=== PATIENT | female | born 1975 | race Caucasian/White ===

== ENCOUNTER → 2017-04-21 16:16 | Outpatient (CLI) | payer OTHER, SELFPAY ==
--- NOTE | 2017-04-21 16:25 | MRI_ITS ---
STUDY: MRI LUMBAR SPINE WITHOUT CONTRAST REASON FOR EXAM: Female, 41 years old. Low back pain radiating down right leg TECHNIQUE: Standardized fat and water weighted pulse sequences were obtained in the sagittal and axial planes. COMPARISON: October 19, 2014 FINDINGS: T12-L1: Normal endplates. Normal disc height, hydration and morphology. Normal bilateral facet joints. Normal central canal and bilateral lateral recesses. Normal bilateral intervertebral neural foramina. Normal lumbar lordosis. There is no substantial scoliosis. Normal conus medullaris that terminates at T12-L1 L1-2: Normal endplates. Normal disc height, hydration and morphology. Normal bilateral facet joints. Normal central canal and bilateral lateral recesses. Normal bilateral intervertebral neural foramina. L2-3: Normal endplates. Normal disc height, hydration and morphology. Normal bilateral facet joints. Normal central canal and bilateral lateral recesses. Normal bilateral intervertebral neural foramina. L3-4: Grade 1 spondylolisthesis and spondylolysis. Degenerative endplate changes with narrowing the disc space and desiccation of the disc. Moderate bulging disc osteophyte complex. Bilateral facet arthropathy. Mild narrowing of the central canal. Moderate to severe bilateral recess and neuroforaminal stenosis exaggerated by shortened pedicles L4-5: Normal endplates. Normal disc height, desiccation and mild bulging of the annulus with small central disc protrusion.. Bilateral facet arthropathy... Mild narrowing of the central canal. Moderate bilateral recess and neural foraminal encroachment. L5-S1: Normal endplates. Normal disc height, hydration and morphology. Normal bilateral facet joints. Normal central canal and bilateral lateral recesses. Normal bilateral intervertebral neural foramina. Normal visualized sacral ala. Normal visualized paraspinous soft tissue structures. The degree of disc extrusion at L3-4 has decreased and there is also spinal stenosis since prior exam. No other significant changes MRI/Spine Lumbar (Routine) IMPRESSION: Spinal stenosis at L3-4 and L4-5 secondary to disc disease and facet arthropathy exaggerated by shortened pedicles due to spondylolisthesis at L3-4. There is interval improvement noted at L3-4 since prior study. No other significant change. Electronically Signed: Mohinder Whitney MD at 19:28 EST , Service support ,
== END ==
PROVIDERS: Family Provider Family Medicine; PCP Family Medicine; Visit Provider Anesthesiology Pain Medicine
DX: M54.9 Dorsalgia, unspecified (principal); M79.606 Pain in leg, unspecified
CPT/HCPCS: 72148

== ENCOUNTER 2017-05-12 10:52 | Outpatient (RCR) | payer OTHER, SELFPAY ==
--- NOTE | 2017-05-12 13:18 | HP.OTFCE_ITS ---
HP OT Functional Capacity Eval - Task Lift Floor (Occasional 1-33% of Day): 20 lbs Floor (Frequent 34-66% of Day): 10 lbs Floor (Constant 67-100% of Day): negligible Floor PDL: Light Knee (Occasional 1-33% of Day): 20 lbs Knee (Frequent 34-66% of Day): 10 lbs Knee (Constant 67-100% of Day): negligible Knee PDL: Light Waist (Occasional 1-33% of Day): 20 lbs Waist (Frequent 34-66% of Day): 10 lbs Waist (Constant 67-100% of Day): negligible Waist PDL: Light Shoulder (Occasional 1-33% of Day): 15 lbs Shoulder (Frequent 34-66% of Day): 8 lbs Shoulder (Constant 67-100% of Day): negligible Shoulder PDL: Sedentary-Light Overhead (Occasional 1-33% of Day): 15 lbs Overhead (Frequent 34-66% of Day): 8 lbs Overhead (Constant 67-100% of Day): negligible Overhead PDL: Sedentary-Light Comments: Lyly is in significant pain at this time. She is able to complete sedentary light to light work at this time. However, due to pain returing to work until post surgery is recommneded at this time. Surgery scheduled for June 30, 2017. 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 Increased work activities will increase risk of further damaging lumbar spine. She is to have surgery and will need to recover fully with release from surgeon and therapy prior to returning to FT work. - Work Activity/Posture Bending: Occasional Ability (1-33% of day) Squatting: Occasional Ability (1-33% of day) Reaching out: Frequent Ability (34-66% of day) Reaching up: Frequent Ability (34-66% of day) Sitting: Frequent Ability (34-66% of day) Walking: Frequent Ability (34-66% of day) Comments: 34-37% Standing: Occasional Ability (1-33% of day) Comments: Standing increased abck pain to 8/10 and should be minimal at this time. - Reference Duration Sedentary Sedentary Light Light Light Medium Medium Medium Heavy Very Heavy Heavy Occasional (0-33% of day) Frequent (34-66% of day) Constant (67-100% of day) 10 # Negligible Negligible 15 # 8 # Negligible 20 # 10# Negli. 35 # 18 # 7 # 50 # 25 # 10 # 75 # 100 # >100 # 38 # 50 # >50 # 15 # 20 # >20 # - Patient Information Height: 1.63 m Weight:: 139 kg Hand Dominance: R - Medical History Medical History Including Restrictions: She notes no lifitng restrictons to low back from doctor. She is to complete all tasks within tolerance. Surgery scheduled for June 30, 2017. - Diagnoses Diagnoses: PMHx: spondylolisthesis lumbar 4 and 5, anxiety and depression. Currently scheduled for spinal fusion L 4- and L5 at [facility]. - Symptoms Symptoms: Llyy's main symptoms are pain low back and radiates down legs. She has surgery schedule June 30, 2017 at [facility] with Dr. Miranda whom plans to fuse L3 and L4. She noted she has had these symptoms due to back for 3 years off and on. She notes that she recieved PT servcies in [place] 3 years when symptoms first started. She noted it was most likley due to work. - Pain Pain: Lyly's main symptoms are pain in low back that radiates down legs. Pain sitting perfectly still is 1/10. Once starting start movement or walking 8/10. - Work History Work History: Lyly works for [employer] in [facility] for past 11 years. 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 She noted job is very repetitive, requires heavy lifiting, and fast paced. Lyly notes that she gets 1x 10 mins break and at lunch 30 min break. She works 8 hour shifts and is standing most of the time. She drives about 40 mins to work daily. She noted she still works for [employer] but is currently on disability as she is awaiting to get surgery. She went on disability Mar 31 due to increased back pain. Further MRI indicated cause of pain as spondylolisthesis. Surgery June 30, 2017. - Behavioral Behavioral: Lyly was pleasant and cooperative. She was willing to try and complete all tasks although appears to be in pain with facial grimiancs on occasion. - ADLS ADLS: Pt. lives in ranch style home 2 steps to enter with son 3.5 y/o, and daughter 17 y/o. She has basement with 10-12 stairs with handrail to L side. She notes daughter can help with ADls upon having surgery. She noted daughter is compleing all IAdls and cleaning horse stalls at this time. She notes she is (I) for ALDs but has increased pain. She is still able to grocery shop by leaning over cart. She is still driving at this time. She notes that she can ride in car to drop son at father (chase) but they meet nursing home so about 20 mins. - Physical Examination Physical Examination: Pt., Lyly, arrived and completed FCE on this date. She has fusion scheduled at [facility] June 30, 2017. She has increased pain with all functional movements at this time and pain is limiting at this time. Gait is affected and she completes functional mobility with forward trunk flexion secondary due to compensating for pain. Further assessment results can be seen below. She would benefit from rehab post surgery in June to promote full recovery. ROM: B UE : WNL. B LUE: WFL. Increased pain in back with movements. 4/10. Strength: B UE: deltoid: R 4/5, L 4/5. biceps: R 4/5, L 4/5. triceps: R 4/5, L 4/5. wrist extensors: R 4/5, L 4/5. felt increased pain down spine with resistance for tricep synergy. B LUE: hip flexors: R 3+/5, L 3+/5. hamstrings : R 4/5, L 4+/5. quadraceps: R 4/5, L 4/5. hip adductors: R 4/5, L 4/5. hip abductions: R 4/5, L 4/5. Plantar and dorsiflexion: R 4/5, L 4/5. Increased pain with resistance in all planes. Right Food Service Attendant Strength Average: 68.66 Right Food Service Attendant Strength Percentile: approximately 83rd Left Food Service Attendant Strength Average: 81.33 Left Food Service Attendant Strength Percentile: 83rd Right Lateral Pinch Average: 13.00 Right Lateral Pinch Percentile: 50th Left Lateral Pinch Average: 14.66 Left Lateral Pinch Percentile: 75th Right Tripod Pinch Average: 11.33 Right Tripod Pinch Percentile: 25th Left Tripod Pinch Average: 11.00 Left Tripod Pinch Percentile: between 25th and 50th Sensation: B UE sensation is intact and WFL. Completed B LE sensation is variable with pain. Notes increased numbness and tingling in B feet. Fine Motor: FMC is intact and WFL. Balance: Balance is WFL. Increased pain is limiting at this time. - Non Material Handling Activities Bendinx, 10 x, unable secondary to pain. Pain 6-7/10 with reaching about 60 degrees trunk flexion. Significant decreased pace and increased compensations of increased knee flexion and decreased spinal alignment to complete tasks with poor body mechanics. Squattinx, 10x, seated break, 10x fast (decreased pace). Pain 5/10. Completed with fair body mechanics. Spine in alignment and about 70 degree knee flexion. Needed seated break prior to completing 10x fast. Completed fast at significantly decreased pace that would not be applicable to work place at this time. Pain is limiting factor. Kneelinx, short standing break, 10x, seated break, 7x. Pain 2-3/10 on L side, R side pain 6/10. Completed with fair body mechanics. Spinal alignment with use of external support of desk. After seated break noted increased tightness. Completed 7x at quicker but still significantly decreased pain. Reaching out/up: Reaching out: 3x, 10x, 10x fast. Completed with fair body mechanics. Needed increased trunk flexion to compensate for pain. Reaching up: 3x, 10x, 10x fast. Completed with fair body mechanics. Needed increased trunk flexion to compensate for pain. Walking: Complete 15 mins of fx mobility around facility. Antalgic gait noted with increased trunk forward flexion and decreased stride length to compensate for increased pain. She needed 2x standing breaks. Lyly needed to complete fx mobility at decreased pace. Some increased SOB as task went on due to increased pain. Standin-15 mins. Completed with weight shift as needed. Needs to compensate t/o tasks through increased leaning, forward trunk flexion, and weight shifts. R LE typically more painful that LLE. B LE and back are painful and pain is limiting factor. Sittin-40 mins with compensations through weightshift as needed. Notes increased stiffness with sitting for extended periods of time. She furthe rnoted most comfortable positions is sitting or laying as when being completly still is the only time she is able to fuly relieve pain. Climbing Stairs: Completed 10 stairs with alternating foot pattern and intermittent use of 1x hand rail to R side. She is able to complete 10-12 stairs at home to basement with daughter or compensations to get laundry to basement. - Dynamic Occasional Lifting Capacity Floor Lift: 20 lbs. 5-6/10 pain. Completed with fair body mechanics. Spinal alignment but increased trunk flexion to decrease lumbar pain. Cerivcal spine extension with lift and moderate knee flexion. Knee Lift: 20 lbs. 5-6/10 pain. Completed with fair body mechanics. Able to maintain fair spinal alignment but needed to take same steps to eliminate twisiting as well as manage back pain. Pain limiting at this time. Waist Lift: 20 lbs. 5-6/10 pain. Completed fair body mechanics. Lyly exhibits spinal alignment but increased pain noted through some grimances. Completed Shoulder Lift: 15 lbs. Pain at 7/10 pain. Completed tasks within pain tolerance. Decreased weight due to increased pain. Fair body mechanics. Pain limiting at this time. Overhead Lift: 15 lbs. Pain at 7/10 pain. Completed tasks within pain tolerance. Decreased weight due to increased pain. Fair body mechanics. Pain limiting at this time. Carryin lbs. Needed 1x break. pain at 7-8/10. Poor body mechanics with increased forward flexion at hips to decreased low back pain while careying box. Pain limiting at this time. Comments: Pain increased to 7-8/10 pain. as session progressed. Seated breaks needed to promote pain management. She has increased pain with all functional movements at this time and some ADls and majoirty of IADls at limited due to pain at this time. Pain is limiting factor. Scheduled surgery 06/30/17.
--- NOTE | 2017-05-12 13:18 | HP.OTFCE.D ---
FCE D/C Summary - Discharge ANALI HERNÁNDEZ was seen for a one time visit for an FCE on 05/12/17 and is discharged.
== END 2017-05-12 19:00 | disposition home or self-care (01) ==
LOC: OT 10:52
PROVIDERS: Family Provider Family Medicine; PCP Family Medicine; Visit Provider Anesthesiology Pain Medicine
DX: M54.9 Dorsalgia, unspecified (principal); M79.606 Pain in leg, unspecified
CPT/HCPCS: 97750

== ENCOUNTER → 2018-02-26 16:08 | Outpatient (CLI) | payer OTHER, SELFPAY ==
[2018-02-26 17:27] LABS: Hematocrit 37.2 % (37-47); Hemoglobin 11.8 g/dl (12.0-15.0); Mean Corp Hgb Conc 31.7 g/gl (32-36); Mean Corpuscular Hgb 29.4 pg (27.0-32.0); Mean Corpuscular Volume 92.8 fL (81-99); Mean Platelet Vol. 9.5 fl (6.2-12.0); Platelet Count 335 K/mm3 (150-450); RBC Distribution Width CV 12.5 % (11.6-14.6); RBC Distribution Width SD 42.3 fl (35.1-43.9); Red Blood Count 4.01 M/mm3 (4.2-5.4)
[2018-02-26 17:31] LABS: Scan Indicated on CBC? Y/N NO
[2018-02-26 17:45] LABS: ALB/GLOB Ratio 1.1 RATIO (0.9-2.4); AST(SGOT) 29 U/L (15-37); Alanine Aminotransfer ALT/SGPT 26 U/L (13-56); Albumin, Serum 3.7 g/dL (3.2-5.0); Alkaline Phosphatase 85 U/L (45-117); Anion Gap 7 (5-15); BUN 13 mg/dL (7-18); BUN/Creat Ratio 15.6 RATIO (10-20); Calcium,Total 8.2 mg/dL (8.5-10.1); Chloride 107 mmol/L (98-107); Creatinine, Serum 0.83 mg/dL (0.55-1.02); EST Glomerular Filtration Rate 80 mL/min (>60); Est Glom Filt Rate - Afr Amer 97 mL/min (>60); Ferritin 41 ng/mL (8-252); Globulin 3.4 g/dL (2.2-4.2); Glucose 90 mg/dL (74-106); Iron 83 ug/dL (50-170); Protein, Total 7.1 g/dL (6.4-8.2); Sodium Level 140 mmol/L (136-145)
[2018-02-26 17:58] LABS: Vitamin B12 349 pg/mL (211-911); Vitamin D,25 Hydroxy 38.2 ng/mL (29.95-100.01)
== END ==
PROVIDERS: Family Provider Family Medicine; PCP Family Medicine; Visit Provider Family Medicine
DX: R53.83 Other fatigue (principal)
CPT/HCPCS: 36415; 80053; 82306; 82607; 82728; 83540; 84443; 85027

== ENCOUNTER → 2018-04-15 17:21 | Outpatient (CLI) | payer OTHER, SELFPAY ==
[2017-03-28 10:59] VITALS: BMI 22.3
--- NOTE | 2018-04-15 17:26 | RAD_ITS ---
STUDY: X-RAY - UNILATERAL RIBS ( LEFT ) WITH CHEST REASON FOR EXAM: Female, 42 years old. Pain. TECHNIQUE - RIBS: 4 view(s) of the ribs. TECHNIQUE - CHEST: Single PA view of the chest. COMPARISON: None. FINDINGS - RIBS: Normal visualized ribs without a demonstrated fracture. FINDINGS - CHEST: The lungs are well-expanded. There are calcified cannula with in the upper lobes. The lungs are otherwise clear There is no demonstrated pleural abnormality. Normal size heart. Normal mediastinum and afshin. Normal visualized pulmonary arteries. Normal visualized aortic arch and descending thoracic aorta. There are diffuse degenerative changes of the visualized thoracic spine. There is degenerative osteoarthritis of the bilateral shoulders. There is no demonstrated abnormality of the visualized soft tissue structures of the upper abdomen. RAD/Ribs Uni Min 3V w/PA Chest IMPRESSION: RIBS: Normal x-ray examination of the ribs. CHEST: Old granulomatous disease without acute cardiopulmonary process. Electronically Signed: Calvin Sawant DO at 23:12 EST Tel [phone], Service support ,
== END ==
PROVIDERS: Family Provider Family Medicine; PCP Family Medicine; Referring Provider Family Medicine; Visit Provider Family Medicine
DX: R07.81 Pleurodynia (principal)
CPT/HCPCS: 71101

== ENCOUNTER → 2018-12-03 11:47 | Outpatient (CLI) | payer OTHER, SELFPAY ==
[2017-03-28 10:59] VITALS: BMI 22.3
[2018-12-03 14:05] LABS: Absolute Neutrophil Count 1.7 X10^3/uL (2.0-7.7); Basophil# 0.03 X10^3/uL; Basophil% 0.7 % (0-1); Eosinophil# 0.35 X10^3/uL; Eosinophils% 8.6 % (0-5); Hematocrit 36.9 % (37-47); Hemoglobin 11.8 g/dL (12.0-15.0); Lymphocyte % 39.4 % (19-41); Mean Corpuscular Hgb 30.1 pg (27.0-32.0); Mean Corpuscular Volume 94.1 fL (81-99); Mean Platelet Vol. 10.5 fl (6.2-12.0); Monocyte# 0.41 X10^3/uL; Monocyte% 10.1 % (0-10); NRBC Flagged by Analyzer 0 % (0-5); Neutrophil # 1.66 X10^3/uL (2.7-7.7); Platelet Count 218 K/mm3 (150-450); RBC Distribution Width CV 12.7 % (11.6-14.6); RBC Distribution Width SD 43.7 fl (35.1-43.9); Red Blood Count 3.92 M/mm3 (4.2-5.4); White Blood Count 4.1 K/mm3 (4.4-11.0)
[2018-12-03 14:24] LABS: Vitamin B12 558 pg/mL (211-911); Vitamin D,25 Hydroxy 29.7 ng/mL (29.95-100.01)
[2018-12-03 14:28] LABS: Anion Gap 8 (5-15); BUN 10 mg/dL (7-18); BUN/Creat Ratio 10.4 RATIO (10-20); Calcium,Total 8.9 mg/dL (8.5-10.1); Chloride 106 mmol/L (98-107); Creatinine, Serum 0.96 mg/dL (0.55-1.02); EST Glomerular Filtration Rate 68 mL/min (>60); Est Glom Filt Rate - Afr Amer 82 mL/min (>60); Glucose 93 mg/dL (74-106); Potassium 4.2 mmol/L (3.5-5.1); Sodium Level 140 mmol/L (136-145); Thyroid Stim Hormone (TSH) 1.97 uIU/mL (0.358-3.74)
== END ==
PROVIDERS: Family Provider Family Medicine; PCP Family Medicine; Referring Provider Family Medicine; Visit Provider Family Medicine
DX: R53.83 Other fatigue (principal)
CPT/HCPCS: 36415; 80048; 82306; 82607; 84443; 85025

== ENCOUNTER 2018-12-19 11:38 | Emergency (ER) | payer OTHER, SELFPAY ==
[2018-12-19 11:39] VITALS: BP 135/89; PULSE 86; RESP 19; TEMP 36.2; O2SAT 99; BMI 24.0
--- NOTE | 2018-12-19 12:02 | ED.VIS.GEN ---
History of Present Illness Chief Complaint: Lower Extremity Injury Detail of Chief Complaint: Right ankle injury Informant: Patient Onset: Yesterday Current Severity: Moderate Maximum Severity: Moderate Narrative: Patient presents with injury to her right ankle. She was riding her horse bareback yesterday when they went through muddy area and the patient fell off of the horse. She rolled her right ankle. She had to walk the horse back to the barn. Ankle continues to be painful and swollen today. She took Tylenol earlier this morning for pain. She denies paresthesias. She denies any other injury. Past Medical History - Allergies and Home Meds Allergies/Adverse Reactions: Allergies prednisone Adverse Reaction (Mild, Verified 12/19/18 11:40) Nausea Primary Care Physician: Chuck Mast MD [Primary Care Provider] - Prior records reviewed: Yes Past Medical History: - - Reviewed Smoking Status: Current some day smoker Review of Systems General: Denies: Chills, Fever Eyes: Denies: Visual changes - bilaterally ENT: Denies: Bilateral ear pain Cardiovascular: Denies: Chest pain Respiratory: Denies: Dyspnea, Cough Gastrointestinal: Denies: Abdominal pain, Nausea, Vomiting, Diarrhea Genitourinary: Denies: Dysuria Musculoskeletal: Reports: Swelling, Extremity Pain Skin: Denies: Rash Neurological: Denies: Headache Hematologic: Denies: Easy bruising Allergy: Denies: Uticaria Physical Exam Vital Signs/Narrative: Vital Signs Temp Pulse Resp BP Pulse Ox 12/19/18 11:39 97.1 F L 86 19 H 135/89 H 99 Inital Vital Signs reviewed: Yes General: Well nourished, Well developed Head: Normocephalic ENT: Moist mucous membranes Cardiovascular: Regular rate Respiratory: No distress Abdomen: Soft, Nontender Extremities: - - Edema and tenderness palpation on the lateral malleolus of the right ankle. No tenderness over the fifth metatarsal. No tenderness of the proximal fibula. Strong distal pulses are noted with normal sensation. No tenderness at the knee or hip. Skin: Normal color Neurological: Alert, Oriented x3 Psychological: Normal affect Diagnostic/Tx/Re-eval Impressions Ankle X-Ray 12/19/18 12:10 IMPRESSION: No demonstrate of fracture malalignment. Soft tissue swelling. Electronically Signed: Nikos Bob MD ([place]) at 12:20 EDT , Service support , 12/19/18 12:10 Ankle min 3 Views [RAD] Stat - Medical Decision Making Patient had taken Tylenol prior to arrival and declined any further pain medication while here. X-ray results are discussed with her. She already has crutches that she will continue to use. ED Disposition - Plan for ED Patient: Disposition: Home or Assisted Living Diagnosis: Right ankle sprain Instructions: Sprain, Ankle, with X-Ray Referrals: Chuck Mast MD [Primary Care Provider] - 1 Week if not improving
--- NOTE | 2018-12-19 12:10 | RAD_ITS ---
STUDY: X-RAY - RIGHT ANKLE REASON FOR EXAM: Female, 43 years old. Left ankle pain after falling off a horse yesterday, swelling TECHNIQUE: 3 view(s) of the ankle. COMPARISON: None. FINDINGS: Normal visualized distal tibia and fibula. Normal medial and lateral malleoli. Normal tibiotalar articulation and ankle mortise. Normal visualized talus and calcaneus. The visualized subtalar, talonavicular, calcaneocuboid and tarsal articulations are normal. Mild diffuse soft tissue swelling. RAD/Ankle min 3 Views IMPRESSION: No demonstrate of fracture malalignment. Soft tissue swelling. Electronically Signed: Nikos Bob MD ([place]) at 12:20 EDT , Service support ,
== END 2018-12-19 12:46 | disposition home or self-care (01) ==
PROVIDERS: Emergency Provider Emergency Medicine; Family Provider Family Medicine; PCP Family Medicine
DX: S93.401A Sprain of unspecified ligament of right ankle, initial encounter (principal); V80.010A Animal-rider injured by fall from or being thrown from horse in noncollision accident, initial encounter; Y93.52 Activity, horseback riding; Y92.9 Unspecified place or not applicable; F17.200 Nicotine dependence, unspecified, uncomplicated
CPT/HCPCS: 73610; 99283

== ENCOUNTER 2019-01-05 13:16 | Emergency (ER) | payer OTHER, SELFPAY ==
[2019-01-05 13:17] VITALS: BP 114/63; PULSE 84; RESP 16; TEMP 36.3; O2SAT 100; BMI 23.6
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
[2019-01-05 14:38] VITALS: O2SAT 98
== END 2019-01-05 15:30 | disposition home or self-care (01) ==
PROVIDERS: Emergency Provider Emergency Medicine; Family Provider Family Medicine; PCP Family Medicine
DX: M54.2 Cervicalgia (principal); M54.6 Pain in thoracic spine; F17.200 Nicotine dependence, unspecified, uncomplicated; V43.92XA Unspecified car occupant injured in collision with other type car in traffic accident, initial encounter; Y93.I9 Activity, other involving external motion; Y92.410 Unspecified street and highway as the place of occurrence of the external cause; Y99.8 Other external cause status
CPT/HCPCS: 72040; 72072; 99282

== ENCOUNTER → 2019-01-12 10:30 | Outpatient (CLI) | payer OTHER, SELFPAY ==
[2019-01-05 13:17] VITALS: BMI 23.6
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
== END ==
PROVIDERS: Family Provider Family Medicine; PCP Family Medicine; Referring Provider Family Medicine; Visit Provider Family Medicine
DX: M54.9 Dorsalgia, unspecified (principal)
CPT/HCPCS: 72110

== ENCOUNTER → 2019-05-10 16:17 | Outpatient (CLI) | payer OTHER, SELFPAY ==
[2019-05-10 17:49] LABS: Absolute Lymphocyte Count 1.73 X10^3/uL (0.83-4.51); Basophil# 0.04 X10^3/uL; Basophil% 0.7 % (0-1); Eosinophils% 3.7 % (0-5); Hematocrit 38.1 % (37-47); Hemoglobin 12.8 g/dL (12.0-15.0); Lymphocyte # 1.73 X10^3/ul (4.0); Lymphocyte % 32.3 % (19-41); Mean Corp Hgb Conc 33.6 g/dL (32-36); Mean Corpuscular Hgb 30.6 pg (27.0-32.0); Mean Corpuscular Volume 91.1 fL (81-99); Mean Platelet Vol. 9.8 fl (6.2-12.0); Monocyte# 0.38 X10^3/uL; Monocyte% 7.1 % (0-10); NRBC Flagged by Analyzer 0 % (0-5); Platelet Count 262 K/mm3 (150-450); RBC Distribution Width CV 12.3 % (11.6-14.6); RBC Distribution Width SD 41.2 fl (35.1-43.9); Red Blood Count 4.18 M/mm3 (4.2-5.4); White Blood Count 5.4 K/mm3 (4.4-11.0)
[2019-05-10 18:30] LABS: ALB/GLOB Ratio 1.2 RATIO (0.9-2.4); AST(SGOT) 36 U/L (15-37); Alanine Aminotransfer ALT/SGPT 30 U/L (13-56); Albumin, Serum 4.1 g/dL (3.2-5.0); Alkaline Phosphatase 71 U/L (45-117); Anion Gap 8 (5-15); BUN 10 mg/dL (7-18); BUN/Creat Ratio 11.6 RATIO (10-20); Calcium,Total 8.6 mg/dL (8.5-10.1); Chloride 107 mmol/L (98-107); Creatinine, Serum 0.86 mg/dL (0.55-1.02); EST Glomerular Filtration Rate 77 mL/min (>60); Est Glom Filt Rate - Afr Amer 93 mL/min (>60); Ferritin 65 ng/mL (8-252); Globulin 3.3 g/dL (2.2-4.2); Glucose 82 mg/dL (74-106); Iron 141 ug/dL (50-170); Iron Binding Capacity,Total 315 ug/dL (250-450); Potassium 3.7 mmol/L (3.5-5.1); Protein, Total 7.4 g/dL (6.4-8.2); Sodium Level 142 mmol/L (136-145); Thyroid Stim Hormone (TSH) 1.15 uIU/mL (0.358-3.74)
[2019-05-10 18:36] LABS: Vitamin D,25 Hydroxy 48.6 ng/mL
== END ==
PROVIDERS: Family Medicine; PCP Family Medicine; Referring Provider Family Medicine; Visit Provider Family Medicine
DX: D64.9 Anemia, unspecified (principal); R53.83 Other fatigue
CPT/HCPCS: 36415; 80053; 82306; 82728; 83540; 83550; 84443; 85025

== ENCOUNTER → 2019-09-03 17:56 | Outpatient (CLI) | payer OTHER, SELFPAY ==
--- NOTE | 2019-09-03 18:15 | MRI_ITS ---
STUDY: MRI CERVICAL SPINE WITHOUT CONTRAST REASON FOR EXAM: Female, 44 years old. Neck pain and headache TECHNIQUE: Standardized fat and water weighted pulse sequences were obtained in the sagittal and axial planes. COMPARISON: None FINDINGS: Craniocervical junction and cervical spine are intact and aligned with normal marrow and paraspinal soft tissues. There is mild spondylotic cord compression at C4-C5. Remainder of the levels have patent thecal sac without cord compression. There is moderate bilateral foraminal stenosis at C4-C5, C5-C6. Spinal cord is normal in size, shape and signal. MRI/Spine Cervical (Routine) IMPRESSION: 1. Minor cord compression at C4-C5. 2. Bilateral foraminal stenoses at C4-C5 and C5-C6. Electronically Signed: Juan Pablo Leyva, at 19:49 EDT Tel , Service support ,
== END ==
PROVIDERS: PCP Family Medicine; Referring Provider Family Medicine; Visit Provider Family Medicine
DX: M50.30 Other cervical disc degeneration, unspecified cervical region (principal)
CPT/HCPCS: 72141

== ENCOUNTER → 2020-11-06 09:22 | Outpatient (CLI) | payer OTHER, SELFPAY ==
--- NOTE | 2020-11-06 09:26 | RAD_ITS ---
INDICATION: DDD EXAMINATION/TECHNIQUE: X-RAY - XR Spine Lumbar Min 4 Views COMPARISON: 11/06/2020. FINDINGS: Mild evaluation of the normal lordosis of the columns of the lumbar spine is seen. No evidence of spondylolisthesis is visualized. Bipedicular posterior internal fixation of the L3 and L4 vertebral bodies is seen. Intervertebral disc spacer is visualized at L3-4 intervertebral disc space. Decreased intervertebral disc height visualized at L3-L4, the vertebral bodies demonstrate unremarkable contours is no evidence of compression deformity. Mild degenerative endplate changes visualized. No evidence of pars interarticularis fracture is seen. Limited evaluation of the abdomen demonstrates scattered stool in the large bowel and pelvic calcifications consistent with phleboliths. RAD/L/S Spine Min 4 Views IMPRESSION: Degenerative bone changes. Unremarkable internal fixation procedures. No evidence of lumbar spinal fracture or spondylolisthesis. Electronically Signed: Hamzah Fung MD at 11:31 EDT Tel , Service support ,
--- NOTE | 2020-11-06 09:26 | RAD_ITS ---
INDICATION: PAIN EXAMINATION/TECHNIQUE: X-RAY - XR Spine Thoracic 3 Views COMPARISON: 01/05/2019 FINDINGS: Mild atherosclerosis of the thoracic spine is visualized. Degenerative endplate changes visualized no evidence of compression deformity of the thoracic vertebral bodies. Degenerative intervertebral disc disease seen, no evidence of spondylolisthesis. No evidence of lytic or sclerotic bone lesions. INCLUDED CHEST/ABDOMEN: No acute abnormalities. RAD/Thoracic Spine 3 Views IMPRESSION: Degenerative changes, no evidence of thoracic spinal fracture or spondylolisthesis. Electronically Signed: Hamzah Fung MD at 12:01 EDT Tel , Service support ,
== END ==
PROVIDERS: PCP Family Medicine; Referring Provider Family Medicine; Visit Provider Family Medicine
DX: M51.36 Other intervertebral disc degeneration, lumbar region (principal)
CPT/HCPCS: 72072; 72110

== ENCOUNTER → 2021-07-10 | Outpatient (CLI) | payer OTHER, SELFPAY ==
[2021-07-10 18:25] LABS: Anion Gap 5 (5-15); BUN 11 mg/dL (7-18); BUN/Creat Ratio 11.3 RATIO (10-20); Calcium,Total 8.9 mg/dL (8.5-10.1); Chloride 106 mmol/L (98-107); Cholesterol 186 mg/dL (200); Creatinine, Serum 0.98 mg/dL (0.55-1.02); EST Glomerular Filtration Rate 66 mL/min (>60); Est Glom Filt Rate - Afr Amer 80 mL/min (>60); Glucose 87 mg/dL (74-106); High Density Lipoprotein 77 mg/dL; Potassium 4.1 mmol/L (3.5-5.1); Sodium Level 139 mmol/L (136-145); Triglycerides 74 mg/dL; Very Low Density Lipoprotein 15 mg/dL (5-40)
== END | disposition home or self-care (01) ==
LOC: MFPLAB 17:01
PROVIDERS: PCP Family Medicine; Referring Provider Family Medicine; Visit Provider Family Medicine
DX: Z13.220 Encounter for screening for lipoid disorders (principal); Z13.1 Encounter for screening for diabetes mellitus
CPT/HCPCS: 36415; 80048; 80061

== ENCOUNTER → 2021-08-03 | Outpatient (CLI) | payer OTHER, SELFPAY ==
--- NOTE | 2021-08-03 07:51 | BI_ITS ---
MAMMOGRAPHY - BILATERAL SCREENING REASON FOR EXAM: Female, 46 years old. Routine annual screening examination. PERTINENT HISTORY: Mother with breast cancer. Bilateral breast implants in 2012. Patient complains of lump in axillary region for past 3 months. TECHNIQUE: Digital bilateral breast kay (3D mammographic acquisition) in the CC and MLO projections. 2-D mediolateral oblique (MLO) and craniocaudad (CC) views of both breasts were obtained. CAD: Full Field Digital Mammography with Computer Added Detection was performed. COMPARISON: None. Baseline examination. FINDINGS: Breast Composition: The breasts are heterogeneously dense, which may obscure small masses. There is an asymmetry seen only on MLO views in the right axilla corresponding to the patient''s complaint of palpable lump. Further characterization with diagnostic ultrasound is recommended. Additional spot compression views can be obtained if possible at that time. There is also an additional asymmetry seen only on digital and 3-D MLO views in the right lower breast approximately 2 cm posterior to the nipple. Further characterization with spot compression views and potential ultrasound recommended. No other significant abnormalities are identified. Intact appearance of bilateral breast implants. No suspicious calcifications. BI/SCRN MAMM (CAD)W/KAY BILAT IMPRESSION: Further imaging evaluation recommended, as described above. (E) Recall Side: Right Breast ASSESSMENT CATEGORY: BIRADS Category 0: Incomplete. Need additional imaging evaluation. A letter regarding these results will be sent to the patient by the facility within 30 days. Approximately 10% of breast cancers are not detected by mammography. A normal mammogram should not delay biopsy of a clinically suspicious abnormality. [id number] Electronically Signed: Mauricio Coronel, at 11:15 EDT ,
== END | disposition home or self-care (01) ==
LOC: OPBI 07:40
PROVIDERS: PCP Family Medicine; Visit Provider Nurse Practitioner Family
DX: Z12.31 Encounter for screening mammogram for malignant neoplasm of breast (principal); Z98.82 Breast implant status
CPT/HCPCS: 77063; 77067

== ENCOUNTER → 2021-08-10 | Outpatient (CLI) | payer OTHER, SELFPAY ==
--- NOTE | 2021-08-10 12:56 | US_ITS ---
STUDY: ULTRASOUND BREAST - RIGHT REASON FOR EXAM: Female, 46 years old. Abnormal screening mammogram. TECHNIQUE: Axial and longitudinal images of the RIGHT breast were performed with a high resolution ultrasound transducer. # OF IMAGES: 36 COMPARISON: Comparison is made with prior mammogram done earlier in the day as well as prior mammogram dated 08/03/2021 . FINDINGS: RIGHT Breast: There is a 1.2 cm x 1.2 cm x 0.9 cm hypoechoic irregular mass corresponding to the palpable abnormality in the right axillary region. Increased blood flow is seen. Biopsy recommended. There is a 9 mm x 8 mm x 6 mm cyst at the 12 o''clock position in the breast at 2 cm from nipple. This also evidence of a 3 mm x 3 mm x 2 mm cyst at the 3 o''clock position of the breast at 6 hours from nipple. There is a septated cyst measuring 6 mm x 5 mm x 3 mm at the 3 o''clock position of the breast at 2 cm from nipple. US/Breast Limited Unilateral IMPRESSION: 1.2 cm x 1.2 cm x 0.9 cm hypoechoic irregular mass corresponding to the palpable and about the in the right axilla as described. Biopsy recommended. Scattered cysts at the 12 o''clock and 3 o''clock positions of the breast as described. ASSESSMENT CATEGORY: BIRADS Category 4: Suspicious - Biopsy Should Be Considered. A letter regarding these results will be sent to the patient by the facility within 30 days. Electronically Signed: Minh Mata MD at 14:09 EDT ,
--- NOTE | 2021-08-10 12:56 | BI_ITS ---
MAMMOGRAPHY - UNILATERAL DIAGNOSTIC: RIGHT BREAST REASON FOR EXAM: Female, 46 years old. Abnormal screening mammogram. Palpable right axillary mass. PERTINENT HISTORY: Mother with breast cancer. TECHNIQUE: Compression spot views of the right breast in the mediolateral oblique and craniocaudal projections were obtained. CAD: Full Field Digital Mammography with Computer Added Detection was performed. COMPARISON: Comparison is made with prior mammogram dated 08/03/2021. FINDINGS: Breast Composition: The breasts are heterogeneously dense, which may obscure small masses. Stable 1.4 cm x 1.3 cm nodule in the right axillary region. Correlation with ultrasound is recommended. Persistent 6.6 mm x 6 mm nodule in the slightly inferior aspect of the right breast. No other significant abnormalities are identified. BI/DIAG MAMM W/CAD, UNILAT IMPRESSION: Nodular densities as described. Correlation with ultrasound is recommended. ASSESSMENT CATEGORY: BIRADS Category 0: Incomplete. Need additional imaging evaluation. A letter regarding these results will be sent to the patient by the facility within 30 days. Approximately 10% of breast cancers are not detected by mammography. A normal mammogram should not delay biopsy of a clinically suspicious abnormality. Electronically Signed: Minh Mata MD at 13:58 EDT ,
== END | disposition home or self-care (01) ==
PROVIDERS: PCP Family Medicine; Referring Provider Nurse Practitioner Family; Visit Provider Nurse Practitioner Family
DX: R92.2 Inconclusive mammogram (principal); Z80.3 Family history of malignant neoplasm of breast
CPT/HCPCS: 76642; 77065

== ENCOUNTER → 2021-08-13 | Outpatient (CLI) | payer OTHER, SELFPAY ==
--- NOTE | 2021-08-13 15:25 | AXNB_PTH ---
PATIENT: ANALI HERNÁNDEZ LOC: [facility] U#:[id number] AGE/SX: 46/F ROOM: RE08/13/[address]: Dr. De Sykes MD : 1975 BED: DIS: 08/13/2021 SPEC #: [id number] RECD: 08/14/21 07:49 STATUS: ALLYSSA DAVID #: [id number] SHAVON: 08/13/21 15:[address]: De Sykes DEPT: SURGICAL PATHOLOGY RECD BY: Melany Quan ENTERED: 08/14/21 08:39 SP TYPE: AX NODE BX OTHR DR: Dr. Jovan Mast MD Tissues: Axillary lymph node, NOS Procedures: Surgery Specimen Level IV HEADER OPERATION: Right axillary biopsy PRE-OP DIAGNOSIS: Right axillary mass TISSUE SUBMITTED: Right axilla MICROSCOPIC DIAGNOSIS Right axilla mass, core biopsy: Fragments of benign breast tissue with focal minimal ductal dilatation. Negative for atypia or malignancy. See comment. NINOSKA:ever 08/15/2021 COMMENT Correlation with clinical, radiologic findings and appropriate follow up are necessary. Case has been reviewed in consultation with Dr. Robertson who concurs with the above diagnosis. IDC:AM MICROSCOPIC DESCRIPTION Slides are reviewed. GROSS DESCRIPTION Received in fixative is one container labeled with the patient's name and designated right axilla. The specimen consists of multiple elongated fragments of adipose tissue that in aggregate measure 1 x 0.5 x 0.1 cm. The specimen is totally submitted in one cassette. / NINOSKA:ever 08/14/2021 TC:5 CPT: 76728
== END | disposition home or self-care (01) ==
LOC: LABSPEC 08-14 08:20
PROVIDERS: PCP Family Medicine; Referring Provider Surgery; Visit Provider Surgery
DX: R22.31 Localized swelling, mass and lump, right upper limb (principal)
CPT/HCPCS: 88305

== ENCOUNTER → 2021-10-09 | Outpatient (CLI) | payer OTHER, SELFPAY ==
--- NOTE | 2021-10-09 14:23 | BI_ITS ---
MAMMOGRAPHY - UNILATERAL DIAGNOSTIC: RIGHT BREAST REASON FOR EXAM: Female, 46 years old. Breast lump PERTINENT HISTORY: History of benign breast biopsy, implants. TECHNIQUE: Digital examination. Mediolateral oblique (MLO), mediolateral and craniocaudad (CC) views of the breast were obtained along with 3-D tomosynthesis. CAD: CAD was performed on this study. COMPARISON: 08/03/2021 FINDINGS: Breast Composition: The breasts are heterogeneously dense, which may obscure small masses. There are no dominant masses or suspicious calcifications. No other significant abnormalities are identified. Implants are intact Because of the previous benign biopsy and the heterogeneity of the breasts, a follow-up study in 6 months is recommended to assess stability. BI/DIAG MAMM W/CAD, UNILAT IMPRESSION: Stable unilateral diagnostic mammogram. ASSESSMENT CATEGORY: BIRADS Category 3: Probably Benign - Short-Interval Follow-up Suggested. A letter regarding these results will be sent to the patient by the facility within 30 days. FOLLOW-UP RECOMMENDATION: Follow-up recommended within 6 months. (C) Approximately 10% of breast cancers are not detected by mammography. A normal mammogram should not delay biopsy of a clinically suspicious abnormality. Electronically Signed: Kuldeep Sarah MD at 15:28 EDT ,
== END | disposition home or self-care (01) ==
PROVIDERS: PCP Family Medicine; Visit Provider Surgery
DX: N63.0 Unspecified lump in unspecified breast (principal); Z98.82 Breast implant status
CPT/HCPCS: 77061; 77065; G0279

== ENCOUNTER → 2021-10-12 | Outpatient (CLI) | payer OTHER, SELFPAY ==
--- NOTE | 2021-10-12 16:33 | MRI_ITS ---
STUDY: MRI CERVICAL SPINE WITHOUT CONTRAST REASON FOR EXAM: Female, 46 years old. Hernaited disc C6-7 with lt C7 radiculopathy TECHNIQUE: Standardized fat and water weighted pulse sequences were obtained in the sagittal and axial planes. COMPARISON: None FINDINGS: Straightening of normal cervical lordotic curvature. Craniocervical junction appears unremarkable. Minimal retrolisthesis of C3 on C4 and C4 on C5 and C6 on C7. No evidence for cord edema or myelomalacia. Minimal anterior wedging of the C4, C5 and C6 vertebral bodies. Disc desiccation at all levels. Loss of disc height at C4-C5 and C6 exam levels. Mild anterior and posterior osteophytic spurring. No prevertebral edema. No suspicious focal marrow lesions. No acute cervical spine fractures. Level by level segmental analysis: C2-C3 level: No significant central canal stenosis or neural foraminal narrowing. C3-C4 level: Uncovertebral joint and facet joint degenerative changes with broad-based disc bulge resulting in mild effacement of ventral thecal sac without seen in central canal stenosis or neural foraminal narrowing. C4-C5 level: Uncovertebral joint and facet joint degenerative changes with broad-based disc osteophyte complex and ligament flavum thickening contributing to severe central canal stenosis with mild flattening of the ventral surface of the spinal cord. Severe bilateral neural foraminal narrowing seen. C5-C6 level: Uncovertebral joint and facet joint degenerative changes with [id number] bilateral neural foraminal narrowing and mild effacement of ventral thecal sac. C6-C7 level: Uncovertebral joint and facet joint degenerative changes with broad-based disc osteophyte complex contributing to severe bilateral neural foraminal narrowing and eind-vf-[id number] canal stenosis. C7-T1 level: Uncovertebral joint and facet joint degenerative changes predominant on the left with mild left-sided neural foraminal narrowing. No significant central canal stenosis. No paraspinous mass or fluid collections. Vertebral artery flow voids appear patent. MRI/Spine Cervical (Routine) IMPRESSION: Cervical spondylotic changes with multilevel neural foraminal narrowing and central canal stenosis predominantly at C3-C4, C4-C5, C5-C6 and C6-C7 levels. Please see above level by level complete analysis and details. No evidence for acute cervical spine fractures. No large focal disc herniations. Electronically Signed: Sudhakar Saravia MD at 10:50 EDT ,
== END | disposition home or self-care (01) ==
LOC: MRI 16:33
PROVIDERS: PCP Family Medicine; Visit Provider Orthopaedic Surgery
DX: M50.223 Other cervical disc displacement at C6-C7 level (principal); M54.12 Radiculopathy, cervical region
CPT/HCPCS: 72141

== ENCOUNTER 2021-12-11 11:09 | Observation (INO) | payer BC, SELFPAY ==
[2021-11-29 13:38] LABS: Absolute Lymphocyte Count 1.76 X10^3/uL (0.83-4.51); Absolute Neutrophil Count 4.1 X10^3/uL (2.0-7.7); Basophil# 0.04 X10^3/uL; Basophil% 0.6 % (0-1); Eosinophil# 0.27 X10^3/uL; Eosinophils% 4.1 % (0-5); Hematocrit 37.9 % (37-47); Hemoglobin 12.3 g/dL (12.0-15.0); Lymphocyte # 1.76 X10^3/ul (0.83-4.51); Lymphocyte % 26.4 % (19-41); Mean Corp Hgb Conc 32.5 g/dL (32-36); Mean Corpuscular Hgb 30.8 pg (27.0-32.0); Mean Platelet Vol. 9.4 fl (6.2-12.0); Monocyte# 0.52 X10^3/uL; Monocyte% 7.8 % (0-10); NRBC Flagged by Analyzer 0 % (0-5); Neutrophil # 4.06 X10^3/uL (2.7-7.7); Neutrophil % 60.9 % (47-70); Platelet Count 283 K/mm3 (150-450); RBC Distribution Width CV 12.2 % (11.6-14.6); RBC Distribution Width SD 43.2 fl (35.1-43.9); Red Blood Count 3.99 M/mm3 (4.2-5.4); White Blood Count 6.7 K/mm3 (4.4-11.0)
[2021-11-29 13:46] LABS: International Normalized Ratio 0.9; Prothrombin Time (Protime)PT. 11.5 SECONDS (11.7-14.9)
[2021-11-29 13:47] LABS: Partial Thromboplast Time 28.9 Seconds (24.1-36.2)
[2021-11-29 14:03] LABS: Anion Gap 6 (5-15); BUN 11 mg/dL (7-18); BUN/Creat Ratio 10.9 RATIO (10-20); Calcium,Total 9.2 mg/dL (8.5-10.1); Chloride 104 mmol/L (98-107); Creatinine, Serum 1.01 mg/dL (0.55-1.02); EST Glomerular Filtration Rate 63 mL/min (>60); Est Glom Filt Rate - Afr Amer 76 mL/min (>60); Glucose 94 mg/dL (74-106); Potassium 3.8 mmol/L (3.5-5.1); Sodium Level 140 mmol/L (136-145)
[2021-11-29 14:13] LABS: AST(SGOT) 27 U/L (15-37); Alanine Aminotransfer ALT/SGPT 23 U/L (13-56); Albumin, Serum 3.9 g/dL (3.2-5.0); Alkaline Phosphatase 67 U/L (45-117); Bilirubin, Direct 0.11 mg/dL (0.00-0.30); Globulin 3.3 g/dL (2.2-4.2); Magnesium 1.9 mg/dL (1.6-2.6); Protein, Total 7.2 g/dL (6.4-8.2)
[2021-11-29 14:39] LABS: HIV - WCH Non-Reactive (Nonreactive); Hepatitis B Surface Antibody Non-Reactive; Hepatitis C Antibody Non-Reactive (Nonreactive)
[2021-12-01 09:07] LABS: Hepatitis A AB, Total Negative (Negative)
--- NOTE | 2021-12-06 11:48 | CASEMGMT ---
TC to pt for presurgical assessment, no answer and no voicemail to leave a message.
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
[2021-12-11] VITALS (14 sets, daily range): BP systolic 108–137; BP diastolic 68–86; PULSE 62–87; RESP 16–18; TEMP 36.5–37.1; O2SAT 37–100; BMI 22.6
[2021-12-11] MEDS: Acetaminophen 500 MG Tablet 1000 MG PO (06:08)
[2021-12-11 06:11] LABS: Bedside Glucose 67 mg/dL (74-106)
[2021-12-11] MEDS: Lactated Ringers 1,000 ML 15 ML IV ×2 (06:18→10:01)
[2021-12-11] MEDS: Magnesium 2 GM for ERAS IV (06:19)
[2021-12-11 06:43] LABS: Internal QC Validated? YES +Cl - CLEAR BKGD; Pregnancy, Urine Negative Negative
--- NOTE | 2021-12-11 07:30 | DISC_PTH ---
PATIENT: ANALI HERNÁNDEZ LOC: [facility] U#:[id number] AGE/SX: 46/F ROOM: [facility] [place] RE12/11/[address]: Dr. Dagoberto Salvador DO : 1975 BED: 1 DIS: 12/12/2021 SPEC #: [id number] RECD: 12/11/21 11:22 STATUS: ALLYSSA REMirta #: [id number] SHAVON: 12/11/21 07:[address]: Dagoberto Salvador DEPT: SURGICAL PATHOLOGY RECD BY: Melany Quan ENTERED: 12/11/21 12:25 SP TYPE: DISC OTHR DR: Dr. Jovan Mast MD Tissues: Intervertebral disc, NOS Procedures: Surgery Specimen Level III HEADER OPERATION: ERAS, anterior cervical fusion C6-7 PRE-OP DIAGNOSIS: Foraminal stenosis C6-7, possible herniated disc C6-7 TISSUE SUBMITTED: Foraminal stenosis and herniated disc C6-7 MICROSCOPIC DIAGNOSIS Disc C6-7: Fragments of fibrocartilaginous tissue with focal degenerative and regenerative changes. NINOSKA:ever 12/12/2021 MICROSCOPIC DESCRIPTION Slides are reviewed. GROSS DESCRIPTION Received in fixative is one container labeled with the patient's name and designated disc. The specimen consists of multiple irregular fragments of kincaid, indurated tissue that in aggregate measure 3.5 x 2.5 x 0.6 cm. The largest piece measures 2 cm in greatest dimension. Strip Polisher tissue is submitted in one cassette. / NINOSKA:ever 12/11/2021 TC:5 CPT: 91239
[2021-12-11] MEDS: Cefazolin 2 GM in 0.9% Normal Saline 100 ML IV (07:40)
--- NOTE | 2021-12-11 08:00 | RAD_ITS ---
STUDY: X-RAY - CERVICAL SPINE REASON FOR EXAM: Female, 46 years old. C6-7 ANTERIOR FUSION TECHNIQUE: 1 view(s) of the cervical spine were obtained. COMPARISON: None FINDINGS: The localization instrument is seen along the inferior aspect of the C6 vertebrae anteriorly. RAD/Spine 1 View Any Level IMPRESSION: The localization instrument is seen along the inferior aspect of the C6 vertebrae anteriorly. Electronically Signed: Minh Mata MD at 9:24 EDT ,
--- NOTE | 2021-12-11 08:10 | RAD_ITS ---
STUDY: X-RAY - CERVICAL SPINE REASON FOR EXAM: Female, 46 years old. C6-C7 ANTERIOR FUSION TECHNIQUE: 1 view(s) of the cervical spine were obtained. COMPARISON: None FINDINGS: The localization instrument is seen along the anterior superior aspect of the C6 vertebra. RAD/Spine 1 View Any Level IMPRESSION: The localization instrument is seen along the anterior superior aspect of the C6 vertebrae. Electronically Signed: Minh Mata MD at 9:23 EDT ,
--- NOTE | 2021-12-11 08:11 | RAD_ITS ---
STUDY: X-RAY - CERVICAL SPINE REASON FOR EXAM: Female, 46 years old. C6-C7 ANTERIOR FUSION TECHNIQUE: 1 view(s) of the cervical spine were obtained. COMPARISON: None FINDINGS: The metallic localizing needle is seen along the anterior aspect of the C6-C7 disc. RAD/Spine 1 View Any Level IMPRESSION: Localization instrument is seen along the anterior aspect of the C6-C7 disc. Electronically Signed: Minh Mata MD at 9:22 EDT ,
[2021-12-11] MEDS: THROMBIN (RECOMBINANT) 20,000 UNIT VIAL 20000 UNIT TOPICAL (08:52)
[2021-12-11] MEDS: Heparin 10,000 UNITS/10 ML Vial 10000 UNITS (08:52)
--- NOTE | 2021-12-11 09:10 | RAD_ITS ---
STUDY: X-RAY - CERVICAL SPINE REASON FOR EXAM: Female, 46 years old. C6-C7 ANTERIOR FUSION -- #4 TECHNIQUE: 1 view(s) of the cervical spine were obtained. COMPARISON: None FINDINGS: The metallic localization instrument is seen within the C6-C7 disc. RAD/Spine 1 View Any Level IMPRESSION: The metallic localization instrument is seen within the C6-C7 disc. Electronically Signed: Minh Mata MD at 9:34 EDT ,
--- NOTE | 2021-12-11 10:30 | RAD_ITS ---
STUDY: X-RAY - CERVICAL SPINE REASON FOR EXAM: Female, 46 years old. C6-C7 ANTERIOR FUSION -- #5 TECHNIQUE: 1 view(s) of the cervical spine were obtained. COMPARISON: Comparison is made with prior examination in the region of the. FINDINGS: The patient is status post anterior fusion at the C 67 level with sclerosis in the plate fixation device and prosthetic disc placement. RAD/Spine 1 View Any Level IMPRESSION: Status post anterior fusion at the C6-C7 level with disc placement. Electronically Signed: Minh Mata MD at 14:54 EDT ,
--- NOTE | 2021-12-11 11:18 | PCM.OPRPT ---
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 Salvador [employer] assistant principal: Ashley CAUSEY Anesthesia: General endotracheal administered by [facility] EBL: 20 cc Drains: 1/4 inch [place] Complications: None Procedure: Patient was taken to the OR where she was placed in the supine position on the operating table. She was then placed under general endotracheal anesthesia. A Bell catheter was inserted. Neuro monitoring placed her leads on the patient: The neck and left anterior iliac spine were then prepped and draped in the standard fashion. Small puncture incision was made over the left ASIS. The Jamshidi needle was then put in place and tamped down into the bone marrow. 60 cc of bone marrow aspirate were then obtained. This was handed off to the cardiac catheterization technician in the room who the patient's own stem cells from all the other cells concentrated them 10 times and handed them back to us in the OR. The Jamshidi needle was removed. An incision was then made starting in the midline below the cricoid started at a predetermined point determined by preoperative x-ray. I took the incision to the right near the sternocleidomastoid muscle. We then undermined the subcutaneous tissue off of the platysma in a cephalad and caudad direction. I then split the platysma longitudinally in line with its fibers. We then developed the planes within the neck of the first exploiting the superficial cervical fascia and followed by opening of the pretracheal fascia. The carotid was identified was moved to the right and the trachea and esophagus were pulled to the left along with the strap muscles. We then opened the anterior longitudinal ligament where we thought C6-7 would be a needle marker was put in place and an intraoperative x-ray was taken that confirmed that we were indeed at C6-7. We remove the needle and cauterized a hole in the anterior annulus so as to not lose our level. I then cauterized the periosteum and anterior longitudinal ligament above and below the space to allow for the plate. The anterior annulus was then reamed removed by using a 15 blade once this was removed with pituitary rongeurs more nucleus was removed within the disc space with pituitary rongeurs and curettes. We used curettes all the way from 0-4 0 in size. Went all the way back to the uncinate processes on both sides. Note that she has severe foraminal stenosis on the left and actually on the right. Using a 4 mm sobia bur I burred the uncinate process repeatedly. This was a technique by which you bur followed by the instillation of cold saline this was done repeatedly until the uncinate process at the introitus of the foramen a was a very thin shell of bone. This was then easily removed with small angled curettes. This completely decompressed the C7 nerve root on the left side. Note that we kept a close eye on all the nerves and particularly C7 on the left during this part of the procedure. That was done by neuro monitoring. I think is that the same exact thing on the right side using the sobia bur to bur the uncinate process down to a thin shell removed it with curettes off of the base of the nerve root. This was then checked again with a nerve hook to make sure the foramen was open. Once this was done I then used a bur to bur some of the backside of the space to make room for the cage and not burred the sides a little bit on both sides to make room for a larger cage. All the remaining cartilage was removed off the endplates with sharp curettes. Condition I used a bur to bur the anterior osteophytes of the bottom of C6 and the top of C7. This was after removal of the intervertebral distractor. We then checked the space first with a 7 mm large trial and then an 8. We decided to go with the 8 it was a better fit and we were able to countersink it. Then opened the large that is 14-1/2 x 16 cage 8 mm high and 8 mm of lordosis. We then used the spongy allograft to fill the center of the cage and then we then soaked in the patient's own concentrated stem cells. This was then tamped into place at the disc space and countersunk a couple of millimeters. A 24 mm plate was then put in place in the first of 4 holes using all was punched in 2 into C7 and 2 into C6. This was followed by 14 mm long 4 mm diameter screws that were self-tapping. These then screwed down through the locking mechanism of the Spyder plate. This was observed in the lateral projection intraoperatively with x-ray was found to be quite satisfactory. He had excellent position of the plate the cage and the 4 screws. An amniotic membrane was then placed over the plate to prevent adhesions to the trachea or the esophagus. A 1/4 inch [place] drain was inserted. We closed the platysma running fashion with 5-0 Vicryl. Followed by closure of subcutaneous tissues with 5-0 Vicryl in interrupted fashion and there was no need for outside stitches. Sterile dressings were then applied and a safety pin was placed through the drain. The patient was then recovered in the OR she was taken to recovery in satisfactory condition on her hospital bed. This is the end of operative summary on Lyly Steve. This is Dr. Salvador dictating.
--- NOTE | 2021-12-11 12:07 | EKG12_ITS ---
Test Reason : ARRYTHMIA IN PACU Blood Pressure : / mmHG Vent. Rate : 069 BPM Atrial Rate : 069 BPM P-R Int : 134 ms QRS Dur : 074 ms QT Int : 380 ms P-R-T Axes : 063 042 030 degrees QTc Int : 407 ms Normal sinus rhythm with sinus arrhythmia Normal ECG When compared with ECG of 29-NOV-2021 12:46, No significant change was found Confirmed by LETY FAN, JANNETTE ([id number]), assistant editor ANALI ROSSI ([id number]) on 12/13/2021 8:08:53 AM Referred By: Dagoberto Salvador Confirmed By:JANNETTE DAVIDSON MD
[2021-12-11] MEDS: Ensure Surgery 237 ML LIQUID PO (14:33)
[2021-12-11] MEDS: Lactated Ringers 1,000 ML 100 ML IV ×2 (14:34→23:19)
[2021-12-11] MEDS: Morphine 4 MG/ML Syringe IV ×2 (14:35→16:53)
[2021-12-11] MEDS: dexAMETHasone 4 MG/ML Vial IV ×2 (14:35→20:11)
[2021-12-11] MEDS: Cefazolin 1 GM/50 ML BAG IV ×2 (15:15→23:19)
[2021-12-11] MEDS: 0.9% Saline Lock 10 ML Syringe IV (20:11)
[2021-12-11] MEDS: oxyCODONE 5 MG Tablet PO ×2 (20:18→22:05)
[2021-12-11] MEDS: buPROPion (XL) 300 MG TABLET.XL PO (22:01)
[2021-12-11] MEDS: Citalopram 40 MG TABLET PO (22:01)
[2021-12-11] MEDS: Zolpidem Tartrate 5 MG Tablet PO (23:19)
[2021-12-12 02:20] VITALS: BP 98/63; PULSE 63; RESP 16; TEMP 36.6; O2SAT 98
[2021-12-12] MEDS: dexAMETHasone 4 MG/ML Vial 2 MG IV ×2 (02:23→09:05)
[2021-12-12] MEDS: 0.9% Saline Lock 10 ML Syringe IV (02:24)
[2021-12-12 06:57] VITALS: BP 119/61; PULSE 68; RESP 18; TEMP 36.7; O2SAT 97
[2021-12-12] MEDS: oxyCODONE 5 MG Tablet PO (06:59)
[2021-12-12 08:28] VITALS: O2SAT 97
[2021-12-12 09:00] VITALS: BP 112/66; PULSE 73; RESP 16; TEMP 36.9; O2SAT 97
--- NOTE | 2021-12-12 09:20 | CASEMGMT ---
WALE TAN Assessment: Face to Face with pt for initial transition planning/care coordination assessment. WALE TAN introduced self and role at [facility], pt voices understanding and consents to assessment. Pt is A/O x4 and answers all questions appropriately at this time. Care providers, pharmacy, and demographics verified/updated. Admitting Dx: anterior cervical fusion C6-7 PCP:Kezia Specialists:margoth Salvador Pharmacy: [facility] Retail Insurance: [place] Prescription Benefit: yes LW/HPOA: Pt reports she has a LW/DPOA and her DPOA is her father Roland Steve. She is aware this is not on file at [facility] and she may bring in to be scanned into her chart. LNOK: Keiko Steve, mother Living Arrangements: Pt lives in a single story house with no steps to enter with her son. Pt plans to dc to her parents home which is a two story, pt will be on the main level and has 3 steps to enter with a rail. Pt reports she was I in ADL's and denies concerns at home. Transportation: Pt drives self and denies concerns with transportation. Pt family able to transport her until she can drive again to medical appts. DME/HHC/SNF: Pt has a cane and walker available to her but does not use. Pt denies hx of HHC or SNF stays. Pt states no concerns with going home at time of dc. Pt states no further concerns/needs. CM to follow. Advised pt to ask CM if any further question/concerns/needs arise, voices understanding. Pt Goal: Home Plan: Home
--- NOTE | 2021-12-12 09:59 | DS.PCM_ITS ---
Providers Date of Admission: 12/11/21 Primary Care Physician: Dr. Chuck Mast MD Attending Physician: This is discharge summary on . Patient was admitted yesterday for surgical intervention in the form of anterior cervical fusion at the C6-7 level. She tolerated the procedure well. This morning she relates that her left arm pain that was so severe is completely gone. Her voice is clear. She has no Celeste's syndrome. I will change her dressing removed her drain. The incision is healing well. I gave her directions regarding her activities when to remove the dressing which is on Friday and shower on Friday. She already has an nicolasa ointment to see me in the office. I will give her some oxycodone 5mg for the next several days if she needs it for pain. This is the end of discharge summary on . This is Dr. Salvador dictating. Reason For Visit: ANTERIOR CERVICAL FUSION C6-7 Medications at Discharge Home Medications citalopram 40 mg tablet 40 mg PO QHS mood 03/28/17 bupropion HCl 300 mg 24 hr tablet, extended release 300 mg PO QHS mood 09/28/21 doxycycline hyclate 50 mg capsule 50 mg PO DAILY ACNE 09/28/21 ibuprofen 600 mg tablet 600 mg PO PRN PRN Pain 09/28/21 cholecalciferol (vitamin D3) 25 mcg (1,000 unit) capsule (Vitamin D3) 25 mcg PO DAILY supplement 11/28/21 multivitamin 1 cap PO DAILY supplement 11/28/21 ferrous sulfate 325 mg (65 mg iron) tablet 325 mg PO DAILY supplement 12/11/21 Weight / BMI Weight Weight: 131 lb 12.8 oz Body Mass Index (BMI) 22.6 ABG / Lab / Microbiology Data Result Diagrams: 11/29/21 13:00 11/29/21 13:00 Microbiology: Microbiology 11/29/21 13:00 Swab (Method) Nasal Screen MRSA/MSSA - Final Radiography Diagnostic Testing: Radiology Impression Spine X-Ray 12/11/21 10:30 IMPRESSION: Status post anterior fusion at the C6-C7 level with disc placement. Electronically Signed: Minh Mata MD at 14:54 EDT , Meaningful Use Info Meaningful Use Diagnoses (Choose all that apply): None applicable Discharge Plan Admission Admit Date/Time: 12/11/21 11:09 Attending Provider: Dagoberto Salvador Primary Care Provider: Chuck Mast Discharge Orders/Prescriptions Prescriptions: No Action bupropion HCl 300 mg tablet extended release 24 hr 300 mg PO QHS doxycycline hyclate 50 mg capsule 50 mg PO DAILY Label Comments: TAKE 1 CAPSULE BY MOUTH ONCE DAILY ibuprofen 600 mg tablet 600 mg PO PRN PRN (Reason: Pain) citalopram 40 MG tablet 40 mg PO QHS multivitamin Capsule 1 cap PO DAILY cholecalciferol (vitamin D3) [Vitamin D3] 25 mcg (1,000 unit) Capsule 25 mcg PO DAILY ferrous sulfate 325 mg (65 mg iron) Tablet 325 mg PO DAILY Referrals / Follow Up: Chuck Mast MD [Primary Care Provider] - Disposition Disposition (needs filled in before D/C Order can be placed): Home, Self Care
--- NOTE | 2021-12-12 11:35 | CASEMGMT ---
Social Work SW attempted to validate AD with pt. Pt declined to talk to SW at this time. Pt did not want to discuss AD. WADE Carrasco
--- NOTE | 2021-12-12 11:59 | PHA.DC.MR ---
Pharmacy Service has performed discharge medication reconciliation for this patient. The patient's discharge medication list was reviewed for discrepancies and discrepancies were resolved. Home Medications citalopram 40 mg tablet 40 mg PO QHS mood 03/28/17 bupropion HCl 300 mg 24 hr tablet, extended release 300 mg PO QHS mood 09/28/21 doxycycline hyclate 50 mg capsule 50 mg PO DAILY ACNE 09/28/21 ibuprofen 600 mg tablet 600 mg PO PRN PRN Pain 09/28/21 cholecalciferol (vitamin D3) 25 mcg (1,000 unit) capsule (Vitamin D3) 25 mcg PO DAILY supplement 11/28/21 multivitamin 1 cap PO DAILY supplement 11/28/21 ferrous sulfate 325 mg (65 mg iron) tablet 325 mg PO DAILY supplement 12/11/21
== END 2021-12-12 11:22 | disposition home or self-care (01) ==
LOC: SDC 11:39 → MS3 12-12 09:41
PROVIDERS: Anesthesiology; Admitting Provider Orthopaedic Surgery; PCP Family Medicine; Referring Provider Orthopaedic Surgery; Visit Provider Orthopaedic Surgery
PROC: (CPT 22551; principal; 2021-12-11 07:00)
DX: M48.02 Spinal stenosis, cervical region (principal); M54.12 Radiculopathy, cervical region; F17.290 Nicotine dependence, other tobacco product, uncomplicated; F41.9 Anxiety disorder, unspecified; F32.A Depression, unspecified; Z79.899 Other long term (current) drug therapy; Z98.1 Arthrodesis status; D64.9 Anemia, unspecified; Z87.19 Personal history of other diseases of the digestive system; Z86.2 Personal history of diseases of the blood and blood-forming organs and certain disorders involving the immune mechanism
CPT/HCPCS: 22551; 20937; 22853; 22845; 00670; 36415; 72020; 80048; 80076; 81025; 82962; 83735; 85025; 85610; 85730; 86703; 86706; 86708; 86803; 87077; 87081; 88304; 93005; 96361; 96365; 96366; 96375; 96376; 97161; 97530; 99218; 99251; 99406; C1713; J7120; A4216; G0378; G0463; J2405

== ENCOUNTER 2022-05-06 10:22 | Outpatient (RCR) | payer BC, SELFPAY ==
--- NOTE | 2022-05-13 14:40 | HP.FCE ---
Floor (Occasional 1-33% of Day): 40# Floor (Frequent 34-66% of Day): 20# Floor (Constant 67-100% of Day): NA Floor PDL: Light-Medium Knee (Occasional 1-33% of Day): 40# Knee (Frequent 34-66% of Day): 20# Knee (Constant 67-100% of Day): NA Knee PDL: Light-Medium Waist (Occasional 1-33% of Day): 35# Waist (Frequent 34-66% of Day): 17.5# Waist (Constant 67-100% of Day): NA Waist PDL: Light-Medium Shoulder (Occasional 1-33% of Day): 25# Shoulder (Frequent 34-66% of Day): 12.5# Shoulder (Constant 67-100% of Day): NA Shoulder PDL: Light Overhead (Occasional 1-33% of Day): 10# Overhead (Frequent 34-66% of Day): NA Overhead (Constant 67-100% of Day): NA Overhead PDL: Sedentary Comments: Due to increase in pain ranged from /10-7/10 neck and low back pain increased with more activity. pt can not lift on a constant ability. See above chart for lifting at occasional and frequent lifting wts. rec'd. PHYSICAL DEMAND LEVEL AT LIGHT- MEDIUM at floor, knee and waits levels. PHYSICAL DEMAND LEVEL AT LIGHT for shoulder level lifts. PHYSICAL DEMAND LEVEL AT SEDENTARY overhead- Bending: Occasional Ability (1-33% of day) Squatting: Occasional Ability (1-33% of day) Kneeling: Occasional Ability (1-33% of day) Reaching out: Occasional Ability (1-33% of day) Reaching up: Occasional Ability (1-33% of day) Sitting: Frequent Ability (34-66% of day) Standing: Occasional Ability (1-33% of day) Duration Sedentary Sedentary Light Light Light Medium Medium Medium Heavy Very Heavy Heavy Occasional (0-33% of day) Frequent (34-66% of day) Constant (67-100% of day) 10 # Negligible Negligible 15 # 8 # Negligible 20 # 10# Negli. 35 # 18 # 7 # 50 # 25 # 10 # 75 # 100 # >100 # 38 # 50 # >50 # 15 # 20 # >20 # Weight:: 58.967 kg Hand Dominance: Right Medical History Including Restrictions: Pt states she had a low back back fusion lumbar 4-5 in 2017. pt returned to work after this fusion and has continued with getting shots in her low back. Pt states she initiated pain mtg. 3 years prior to her lumbar sx. following her lumbar sx she was off work for a year and underwent Physical therapy for about 6 months and prior to returning to her position she underwent a FCE. Pt states she began having neck Issues for about 3 years. pt states she did have one injection to her neck but this did not help. pt states she did have Physical Therapy prior to her neck sx but not successful. Pt states she underwent her cervical spine fusion 2021. pt was not referred to Physical therapy as did not want her to. pt has been off work since September out on medical leave with issues with weakness, numbness and sharp shooting pains. Pt states she does not have lifting restriction at this time. pt does not exercise on a regular basis- if weather is good will take walks. Diagnoses: Fusion of cervical spine. Lumbar spine fusion. Depression ( controlled with medication). Anxiety ( controlled with medication). Legally blind in left eye since Symptoms: pain in upper trap and radiates up to back and down the arms. pain in bilateral hip and shooting down her legs. headaches. weakness of legs. weakness in arms. low back pain. sleep interruption Pain: pt reports pain 5/10 in upper trap/and hip pain. Highest pain rating during assessment 7/10. Ck pain scale short form (47/78). ? Sensory Score = 28 points. ? Affective Score = 7 points. ? Evaluative Score = 3 points. ? Miscellaneous Score = 9 points. ? Pain Rating Index (ALLISON) = 47 points. ? Present Pain Intensity (PPI) = 4 points. ? Pain Score Interpretation: The higher the score, the greater the perceived pain. Work History: pt works for [employer]. pt has worked for [employer] for 15 years. 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 Pt states she feels wts of parts range up to 30# ( this is when parts are in stacks). pt states job is very repetitive and fast paced. pt states her job is becoming to difficulty for her to preform. pt states she can sit or stand but more difficult with pulling parts off across the belt to pit in bin. pt is not sure how fast the belt is moving to keep up with parts but states very fast paced. pt has concerns about returning to this job following her surgeries. Behavioral: pt was pleasant and cooperative throughout assessment. Pt willing to try and complete all tasks. ADLS: Pt live alone with son age 8. 5 years. Pt lives in one story home with entry. pt states she has a walk in shower. Pt states she is ind. with bathing and dressing. pt has daughter age 22 that comes over to do cleaning at times. Pt states she is IND. with laundry. pt states she is IND with grocery shopping and driving. pt states she is ind. with meal prep and cooking. pt states her son is pretty ind. able to perform his own bathing and dressings. Family is assisting with mowing her yard. pt does own horses but family assist with their care. ROM: pt demo ROM WFL Strength: peak force in Lbs. tested with FIT2. right shoulder flexion 11# left 9#. right shoulder extension 18# eft 16#. right biceps 17# left 15#. right triceps 13# left 15#. right hip flexion 18# left 21#. right quad 17# left 22#. right hamstring 21# left 17#. pt demo a generalized weakness grossly throughout. Right Injection Molding Process Technician Strength Average: 73.33 Right Injection Molding Process Technician Strength Percentile: 50% Left Injection Molding Process Technician Strength Average: 60.00 Left Injection Molding Process Technician Strength Percentile: 33% Right Lateral Pinch Average: 12.00 Right Lateral Pinch Percentile: 25% Left Lateral Pinch Average: 10.00 Left Lateral Pinch Percentile: 25% Right Tripod Pinch Average: 10.00 Right Tripod Pinch Percentile: 10% Left Tripod Pinch Average: 6.00 Left Tripod Pinch Percentile: <10% Comments: heart rate 88 Sensation: [place] monofilament Sensory Testing. bilateral hands 2.83 = interpretation of Normal sensation Fine Motor: 9-hole peg test for Fine Motor. right 18.78 = 50%. left 18.55= 50% Balance: Functional reach testing 12. The Functional Reach Test is a single item test. developed as a quick screen for balance. problems in older adults. Interpretation: A score of 6 or less indicates a significant. increased risk for falls. A score between 6-10 inches indicates a. moderate risk for falls. Bending: pt demo the ability to bend 3/3, 10/10 and 10/10x rapidly. Lumbar and thoracic pain 5/10. following 10x rapidly neck 4/10 and back pain 6/10. pt can bend forward on occasional ability Squatting: pt demo the ability to squat 3/3x, 10/10x and 10/10 rapidly. left leg and back pain 4/10. heart rate 90 following. low back pain 4/10 following 10x. pt demo ability to squat on occasional ability Kneeling: pt completed 3/3, 10/10, and 10/10 rapidly. pt required external support. heart rate 106. pt c/o pain in low back with task 6/10. pt can kneel on occasional ability Reaching out/up: pt completed reaching up/out 3/3x 10/10x and 10/10 rapidly. reaching up pain in neck and right shoulder ( 4/10 ). heart rate 89 following (pain same at 4/10) following tasks. pt can reach up/out on occasional ability due to increase in pain. Walking: walking 15 min. C/O 7/10 pain hips and back- some numbness in buttocks' region and back pain during and following. pt did walking on tread mill holding on to handles and would interchange holding when asked why due to numbness in hands. Standing: pt demo the ability to stand for 8 min with shifting wts. pt can stand on occasional ability Sitting: pt demo sitting for 40 min with shifting body weight. pt can sit on frequent ability Climbing Stairs: pt ascended 10 steps with a reciprocal step pattern noted left hip with slight internal rotation indicating weakness in external hip rotators while stepping up. while descending 10 steps reciprocal no use of railing no hip internal rotation noted. pt demo good ability to perform task. Floor Lift: pt demo the ability to lift 25# with box (15#) total lift wt. 40# maximally from this level with fair lifting mechanics. (lifted with arms away from body). Physical Demand level at Light Medium Knee Lift: pt demo the ability to lift 25# with box (15#) total lift wt. 40# maximally from this level with fair lifting mechanics. (lifted with arms away from body) therapist did advise to keep wt closer to her body - pt attempted to correct lifting mechanics. Physical Demand level at Light Medium Waist Lift: pt demo the ability to lift 20# with box (15#) total lift wt. 35# maximally from this level with fair lifting mechanics. Physical Demand level at Light Medium Shoulder Lift: pt demo the ability to lift 10# with box (15#) total lift wt. 25# maximally from this level with fair lifting mechanics. left arm cramping during this lift. Physical Demand level at Light Overhead Lift: pt demo the ability to lift 10# maximally. left arm cramping during this lift. Physical Demand level at Sedentary Carrying: pt demo the ability to carry 10# with box (15#) total wt. of 25# for 25 feet with fair ability. heart rate 100. left arm 10/17. right hip 07/17 Comments: pt demo the ability to push/ pull 45# for 10 feet. left scapula wing more than right when comparing UB (indication of generalized weakness). pt states increase pain with task feeling of weakness.
--- NOTE | 2022-05-13 14:40 | HP.OTFCE.D ---
FCE D/C Summary - Discharge ANALI HERNÁNDEZ was seen for a one time visit for an FCE on 05/06/22 and is discharged.
== END 2022-05-06 19:00 | disposition home or self-care (01) ==
LOC: OT 10:22
PROVIDERS: PCP Family Medicine; Referring Provider Orthopaedic Surgery; Visit Provider Orthopaedic Surgery
DX: M43.22 Fusion of spine, cervical region (principal)
CPT/HCPCS: 97750

== ENCOUNTER → 2022-07-12 | Outpatient (CLI) | payer BC, SELFPAY ==
--- NOTE | 2022-07-12 14:32 | BI_ITS ---
MAMMOGRAPHY - BILATERAL DIAGNOSTIC REASON FOR EXAM: Female, 47 years old. History of prior right breast biopsy. PERTINENT HISTORY: Mother with breast cancer. Bilateral breast implants. TECHNIQUE: Digital bilateral breast quinten (3D mammographic acquisition) in the CC and MLO projections. 2-D mediolateral oblique (MLO) and craniocaudad (CC) views of both breasts were obtained. CAD: Full Field Digital Mammography with Computer Added Detection was performed. COMPARISON: Comparison is made with prior study dated August 03, 2021. FINDINGS: Breast Composition: The breasts are extremely dense, which lowers the sensitivity of mammography. There are no dominant masses or suspicious calcifications. Stable appearance of the bilateral breast implants. No other significant abnormalities are identified. There has been no significant change since the prior study. BI/DIAG MAMM W/CAD, BILAT IMPRESSION: Stable bilateral diagnostic mammogram. One year follow-up recommended. (A) ASSESSMENT CATEGORY: BIRADS Category 2: Benign. A letter regarding these results will be sent to the patient by the facility within 30 days. Approximately 10% of breast cancers are not detected by mammography. A normal mammogram should not delay biopsy of a clinically suspicious abnormality. Electronically Signed: Minh Mata MD at 15:27 EDT ,
== END | disposition home or self-care (01) ==
LOC: OPBI 14:15
PROVIDERS: PCP Family Medicine; Referring Provider Surgery; Visit Provider Surgery
DX: R92.2 Inconclusive mammogram (principal); Z80.3 Family history of malignant neoplasm of breast
CPT/HCPCS: 77062; 77066; G0279

== ENCOUNTER → 2022-07-31 | Outpatient (CLI) | payer BC, SELFPAY ==
--- NOTE | 2022-07-31 17:49 | MRI_ITS ---
INDICATION: Lumbar pain EXAMINATION: MRI - MR Spine Lumbar WO/W Contrast TECHNIQUE: Multiplanar and multisequence MR images of the lumbar spine. IV Contrast Dosage and Agent: 13 mL Clariscan COMPARISON: 04/21/2017; 07/11/2022 x-ray FINDINGS: VERTEBRAE: Vertebral body heights are preserved. Normal vertebral bodies. L3-L5 laminectomies. VERTEBRAL ALIGNMENT: Susceptibility artifact from L3-L4 posterior instrumented fusion. No spondylolisthesis. There is preservation of the normal lumbar lordosis. CORD: Normal position and signal intensity of the conus medullaris. L1/L2: Normal disc height and morphology. Normal spinal canal, lateral recesses and neuroforamina. L2/L3: Normal disc height and morphology. Right facet arthrosis. Normal spinal canal. Mild right foraminal stenosis. L3/L4: Disc desiccation. Normal spinal canal. Mild right neural foraminal stenosis. L4/L5: Disc bulge. Crowding of the traversing nerve roots in both lateral recesses. Mild bilateral neural foraminal stenosis.. L5/S1: Normal disc height and morphology. Normal spinal canal, lateral recesses and neuroforamina. SOFT TISSUES: Paraspinous muscle fatty infiltration. Lower paraspinous muscle edema. No abnormal enhancement. MRI/Spine Lumbar W/WO Contrast IMPRESSION: Multilevel neural foraminal stenosis detailed above. Lower paraspinous muscle edema. No abnormal enhancement. Electronically Signed: Chris Stevens MD at 16:29 EDT ,
== END | disposition home or self-care (01) ==
LOC: MRI 17:44
PROVIDERS: PCP Family Medicine; Referring Provider Orthopaedic Surgery; Visit Provider Orthopaedic Surgery
DX: M54.50 Low back pain, unspecified (principal); Z98.1 Arthrodesis status
CPT/HCPCS: 72158; A9575

== ENCOUNTER → 2022-08-01 | Outpatient (CLI) | payer BC, SELFPAY ==
[2022-08-01 15:18] LABS: Erythrocyte Sedimentation Rate < 1 mm/hr (0-30)
[2022-08-01 15:36] LABS: Absolute Lymphocyte Count 1.82 X10^3/uL (0.83-4.51); Absolute Neutrophil Count 3.1 X10^3/uL (2.0-7.7); Basophil# 0.05 X10^3/uL; Basophil% 0.9 % (0-1); Eosinophil# 0.21 X10^3/uL; Eosinophils% 3.7 % (0-5); Hematocrit 41.3 % (37-47); Lymphocyte # 1.82 X10^3/ul (0.83-4.51); Lymphocyte % 31.9 % (19-41); Mean Corp Hgb Conc 31.5 g/dL (32-36); Mean Corpuscular Hgb 29.7 pg (27.0-32.0); Mean Corpuscular Volume 94.5 fL (81-99); Mean Platelet Vol. 9.8 fl (6.2-12.0); Monocyte# 0.47 X10^3/uL; Monocyte% 8.2 % (0-10); NRBC Flagged by Analyzer 0 % (0-5); Neutrophil # 3.13 X10^3/uL (2.7-7.7); Neutrophil % 54.9 % (47-70); POSITIVE MORPHOLOGY YES; Platelet Count 292 K/mm3 (150-450); RBC Distribution Width CV 12.1 % (11.6-14.6); RBC Distribution Width SD 42.6 fl (35.1-43.9); Red Blood Count 4.37 M/mm3 (4.2-5.4); White Blood Count 5.7 K/mm3 (4.4-11.0)
[2022-08-01 15:38] LABS: Vitamin B12 341 pg/mL (211-911); Vitamin D,25 Hydroxy 29.9 ng/mL
[2022-08-01 15:49] LABS: ALB/GLOB Ratio 1.1 RATIO (0.9-2.4); AST(SGOT) 30 U/L (15-37); Alanine Aminotransfer ALT/SGPT 26 U/L (13-56); Albumin, Serum 3.6 g/dL (3.2-5.0); Alkaline Phosphatase 81 U/L (45-117); Anion Gap 5 (5-15); BUN 13 mg/dL (7-18); BUN/Creat Ratio 13.5 RATIO (10-20); CRP < 2.90 mg/L (0.0-3.0); Calcium,Total 8.7 mg/dL (8.5-10.1); Chloride 107 mmol/L (98-107); Creatinine, Serum 0.96 mg/dL (0.55-1.02); EST Glomerular Filtration Rate 67 mL/min (>60); Est Glom Filt Rate - Afr Amer 81 mL/min (>60); Globulin 3.2 g/dL (2.2-4.2); Glucose 82 mg/dL (74-106); Potassium 4.2 mmol/L (3.5-5.1); Protein, Total 6.8 g/dL (6.4-8.2); Rheumatoid Factor < 10.0 IU/mL (<15); Sodium Level 139 mmol/L (136-145); Thyroid Stim Hormone (TSH) 1.03 uIU/mL (0.358-3.74); Uric Acid 4.9 mg/dL (2.6-6.0)
[2022-08-01 15:58] LABS: Differential Indicated SCAN CRITERIA MET
[2022-08-01 16:27] LABS: Differential Comment SCANNED
[2022-08-06 14:09] LABS: ANTINUCLEAR ANTIBODIES DIRECT Negative (Negative)
== END | disposition home or self-care (01) ==
LOC: MFPLAB 11:31
PROVIDERS: PCP Family Medicine; Visit Provider Family Medicine
DX: M25.50 Pain in unspecified joint (principal); E55.9 Vitamin D deficiency, unspecified; E53.8 Deficiency of other specified B group vitamins
CPT/HCPCS: 36415; 80053; 82306; 82607; 84443; 84550; 85025; 85652; 86038; 86140; 86431

== ENCOUNTER 2022-12-30 09:24 | Outpatient (RCR) | payer BC, SELFPAY ==
--- NOTE | 2023-01-01 10:13 | HP.OTFCE_ITS ---
Task Lift Floor (Occasional 1-33% of Day): 40# Floor (Frequent 34-66% of Day): 20# Floor (Constant 67-100% of Day): NA Floor PDL: Light-Medium Knee (Occasional 1-33% of Day): 40# Knee (Frequent 34-66% of Day): 20# Knee (Constant 67-100% of Day): NA Knee PDL: Light-Medium Waist (Occasional 1-33% of Day): 40# Waist (Frequent 34-66% of Day): 20# Waist (Constant 67-100% of Day): NA Waist PDL: Light-Medium Shoulder (Occasional 1-33% of Day): 30# Shoulder (Frequent 34-66% of Day): 15# Shoulder (Constant 67-100% of Day): NA Shoulder PDL: Light Overhead (Occasional 1-33% of Day): 25# Overhead (Frequent 34-66% of Day): 12# Overhead (Constant 67-100% of Day): NA Overhead PDL: Light Comments: Light -Medium Physical demand level for lifting at Floor- Knee- Waist level Light Physical demand level for lifting at Shoulder and overhead level pt can not perform constant lifting due to pain Work Activity/Posture Bending: Occasional Ability (1-33% of day) Squatting: Occasional Ability (1-33% of day) Comments: with external support Kneeling: Occasional Ability (1-33% of day) Comments: with external support Reaching out: Frequent Ability (34-66% of day) Reaching up: Frequent Ability (34-66% of day) Sitting: Frequent Ability (34-66% of day) Walking: Frequent Ability (34-66% of day) Standing: Frequent Ability (34-66% of day) Reference Reference: Duration Sedentary Sedentary Light Light Light Medium Medium Medium Heavy Very Heavy Heavy Occasional (0-33% of day) Frequent (34-66% of day) Constant (67-100% of day) 10 # Negligible Negligible 15 # 8 # Negligible 20 # 10# Negli. 35 # 18 # 7 # 50 # 25 # 10 # 75 # 100 # >100 # 38 # 50 # >50 # 15 # 20 # >20 # Patient Information Height: 1.65 m Weight:: 57.153 kg Hand Dominance: Right Medical History Medical History Including Restrictions: This 47 year old female arrives to OT services for an FCE. Pt just had FCE May of 2022. pt states she had cervical fusion 2021. pt did not have therapy following her neck sx. Pt states she had a low back back fusion lumbar 4-5 in 2017. pt returned to work after this fusion and has continued with getting shots in her low back. Pt states she initiated pain mtg. 3 years prior to her lumbar sx. following her lumbar sx she was off work for a year and underwent Physical therapy for about 6 months and prior to returning to her position she underwent a FCE. Pt states she began having neck Issues for about 3 years. pt states she did have one injection to her neck but this did not help. pt states she did have Physical Therapy prior to her neck sx but not successful. Pt states she underwent her cervical spine fusion 2021. pt was not referred to Physical therapy as did not want her to. pt has been off work since September 28. out on medical leave with issues with weakness, numbness and sharp shooting pains. Pt states she does not have lifting restriction at this time. pt does not exercise on a regular basis- if weather is good will take walks. pt does vape Diagnoses Diagnoses: Cervical pain S/p Lumbar fusion Fusion of cervical spine Chronic tension-type headache, not intractable Cervicalgia Arthrodesis status Fusion of spine cervical region Anxiety dx more than 10 years ago controlled with medication Depression dx more than 10 years ago controlled with medication Symptoms Symptoms: Neck pain Migranian exhaustion headaches weakness of legs weakness in arms low back pain sleep interruption fingers and knees feels like they are in a vice Pain Pain: pt reports pain 6/10 in neck/headache/ upper trap. Highest pain rating during assessment 7/10. Ck pain scale short form 39/80Pain Rating Index (ALLISON) = 39 points. Pain Score Interpretation: The higher the score, the greater the perceived pain. pt states headache last 4 days- Work History Work History: pt works for [employer]. pt has worked for [employer] for 15.5 years. 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 Pt states she feels wts of parts range up to 30# ( this is when parts are in stacks). pt states job is very repetitive and fast paced. pt states her job is becoming to difficulty for her to preform. pt states she can sit or stand but more difficult with pulling parts off across the belt to pit in bin. pt is not sure how fast the belt is moving to keep up with parts but states very fast paced. pt has concerns about returning to this job following her surgeries 2021. Behavioral Behavioral: pt was pleasant and cooperative throughout assessment. pt willing to try and complete all tasks. ADLS ADLS: Pt live alone with son age 9 years. Pt lives in one story home with entry. pt states she has a walk in shower. Pt states she is ind. with bathing and dressing. pt has daughter age 23 that comes over to do cleaning at times. Pt states she is IND. with laundry. pt states she is IND with grocery shopping and driving. pt states she is ind. with meal prep and cooking. pt states her son is pretty ind. able to perform his own bathing and dressings. pt states she can mow her yard. pt does own horses but family assist with their care. Physical Examination ROM: pt demo ROM WNL Strength: Fet2 peak force in lbs. testing shoulder flexion right 12# left 10# shoulder extension right 18# left 19# biceps right 19# left 21# triceps right 17# left 17# hip flexion 29# left 25# quadriceps right 30# left 33# hamstrings right 25# left 21# Right [employer] Strength Average: 66.66 Right [employer] Strength Percentile: 34% Left [employer] Strength Average: 55.00 Left [employer] Strength Percentile: 26% Right Lateral Pinch Average: 18.00 Right Lateral Pinch Percentile: 90% Left Lateral Pinch Average: 18.00 Left Lateral Pinch Percentile: 90% Right Tripod Pinch Average: 14.00 Right Tripod Pinch Percentile: 90% Left Tripod Pinch Average: 16.00 Left Tripod Pinch Percentile: 90% Comments: heart rate 69 current pain sitting 3/10 Sensation: monofilament testing for sensation right/left digits 2.83 interpretation normal sensation Fine Motor: 9-hole peg test right 18.96 50% for age left 22.28 50% for age Balance: functional reach test 11 Interpretation: A score of 6 or less indicates a significant increased risk for falls. A score between 6-10 inches indicates a moderate risk for falls pt demo normal balance throughout assessment. Non Material Handling Activities Bending: pt demo the ability to bend forward 3/3x, 10/10x, 10/10x rapidly pt reports neck pain pt holds breath headache 6/10 pt can bend forward on occasional ability due to increase in pain Squatting: pt demo the ability to squat 3/3x, 10/10x, and 10/10x rapidly pt reports muscle weakness in thighs knees and neck and head pain - pt likes to hold her breath heart rate 89 pt can squat on occasional ability with use of external support Kneeling: pt demo demo the ability to kneel 3/3x, 10/10x (heart rate 90) 10/10x rapidly use of external support pt reports headache and knee pain during 09/16 after stopping pain did decrease in knees 0/10 headache 3-10 pt can kneel on occasional ability with use of external support Reaching out/up: pt demo the ability to reach out/up 3/3x, 10/10x and 10/10x rapidly pt heart rate at 83 pt repots muscle burning in triceps states neck hurts reaching out in front 3/10 arms up shoulders hurt while performing but goes away when done pt can reach out/up on frequent ability Walking: pt states she does take her dog walking in the [place] at least 1x a day depending on the weather. pt states she is able to take him for about an hour but can sit along the way. pt demo the ability to ambulate 15 min with reciprocal step pattern pt reports neck and headache 6/10 pt can ambulate on frequent ability Standing: pt demo the ability to stand for 8 min with shifting body weight pt can stand on frequent ability shifting body weight Sitting: pt demo the ability to sit 50 min with no apparent or expressed discomfort - pt sits Forward head and round-shoulder postures (FHRSP) Climbing Stairs: pt ascended and descended 10 steps with reciprocal step jigar erns with good ability. Dynamic Occasional Lifting Capacity Floor Lift: pt demo lift ability from this level 25# + box 15# for maximal lift at 40# with fair lifting mechanics. for Light -Medium Physical demand level Knee Lift: pt demo lift ability from this level 25# + box 15# for maximal lift at 40# with fair lifting mechanics. for Light -Medium Physical demand level Waist Lift: pt demo lift ability from this level 25# + box 15# for maximal lift at 40# with fair lifting mechanics. for Light -Medium Physical demand level Shoulder Lift: pt demo lift ability from this level 15# + box 15# for maximal lift at 30# with fair lifting mechanics. heart rate 74 for Light Physical demand level Overhead Lift: pt demo the ability to lift 25# from overhead level. with good ability. for Light Physical demand level Carrying: pt demo the ability to carry 10# + 15# box for max carry of 25# for 30 feet. Comments: heart rate 93 pt did c/o headache but per pt has been fighting headache for 4 days pt presents with Forward head and round-shoulder postures (FHRSP) throughout assessment pt does have increase pain with increased activity- pt has not exercised or performed work conditioning at this time- pt reports some pain does go away after task is completed.
--- NOTE | 2023-01-01 10:13 | HP.OTFCE.D ---
FCE D/C Summary Discharge text: ANALI Raffi SIMMSER was seen for a one time visit for an FCE on 12/30/22 and is discharged.
== END 2022-12-30 19:00 | disposition home or self-care (01) ==
LOC: OT 09:24
PROVIDERS: PCP Family Medicine; Referring Provider Orthopaedic Surgery; Visit Provider Orthopaedic Surgery
DX: G44.229 Chronic tension-type headache, not intractable (principal); M54.2 Cervicalgia; M43.22 Fusion of spine, cervical region; Z98.1 Arthrodesis status
CPT/HCPCS: 97750

== ENCOUNTER 2023-08-27 16:25 | Emergency (ER) | payer BC, SELFPAY ==
[2023-08-27 16:25] VITALS: BP 119/74; PULSE 98; RESP 18; TEMP 36.6; O2SAT 99; BMI 23.3
[2023-08-27 16:27] VITALS: BP 119/74; PULSE 98; RESP 18; TEMP 36.6; O2SAT 99
--- NOTE | 2023-08-27 17:25 | ED.RN ---
Pt stated she wanted to go to [facility] to see if they are not as busy as [facility].
== END 2023-08-27 17:21 | disposition left against medical advice (07) ==
LOC: ED 17:28
PROVIDERS: PCP Family Medicine
DX: Z53.21 Procedure and treatment not carried out due to patient leaving prior to being seen by health care provider (principal)
CPT/HCPCS: 99282